=== PATIENT | female | born 1980 | race Caucasian/White ===

== ENCOUNTER 2016-05-14 13:24 | Emergency (ER) | payer SELFPAY ==
[~2016-05-14 13:24] MED LIST: CHLO25CA PO; CLON.1 PO; SULF1SOL4 OD; VIST25CA PO
[2016-05-14 13:42] VITALS: BP 125/73; PULSE 95
--- NOTE | 2016-05-14 14:09 | PD ---
HPI Chief Complaint Abnormal ultrasound findings earlier today (López Rodney MD R1) Travel History International Travel<30 Days: No Contact w/Intl Traveler<30Days: No Known Affected Area: No (López Rodney MD R1) History of Present Illness HPI 36 year old with no care at approximately 21/4 weeks gestation based on LMP presents to OB ED after being informed of abnormal ultrasound findings earlier today at [facility]. She was told there may be hydrocephalus, pleural effusions, and ascites and was recommended to seek medical care. The patient has complaints of a mild, dull, achy headache that has been occurring most days of the week since her started, as well as intermittent spots and dots in her vision, intermittent RUQ abdominal pain, and trace lower extremity edema up to mid-tibia bilaterally. She denies any history of hypertension or PIH. Denies dysuria or hematuria. She states she continues to smoke up to 1 PPD cigarettes and has been smoking 1 PPD throughout the . She does admit to illicit drug use with multiple drugs; she does deny any use of illicit drugs during this . Denies any intake of alcohol during the . She does not report any other complaints. Para: 2 : 3 (López Rodney MD R1) History Past Medical History Narrative Medical History of multiple urinary tract infections Renal calculi History of overdose with soma in 2010 Depression (López Rodney MD R1) Obstetric History Obstetric History 2 previous pregnancies resulted in term vaginal deliveries First reportedly uncomplicated Second complicated by diet-controlled diabetes (López Rodney MD R1) Past Surgical History Narrative Surgical Right stent placement due to renal calculi (López Rodney MD R1) Family History Family History: Negative (López Rodney MD R1) Social History Alcohol Use: No Tobacco Use: Yes (Up to 1 PPD throughout ) Substance Abuse: No (History of substance abuse, currently denies any use) ( López Rodney MD R1) Allergies-Medications (Allergen,Severity, Reaction): Coded Allergies: No Known Allergies (Verified , 07/19/10) Home Meds Active Scripts Sulfacetamide Sodium (Bleph-10)5 Ml Soln1 Drop OD Q1H #1 Prov:Sandor Felder Jr, MD 07/19/10 Reported Medications Clonidine 0.1 mg (Catapres 0.1 mg)0.1 Mg Tab0.1 Mg PO DIRECTED #60 07/19/10 Hydroxyzine Pamoate (Vistaril)25 Mg Cap Po As Directed UNKNOWN DOSE 07/19/10 Chlordiazepoxide Hcl (Librium)25 Mg Cap25 Mg PO QID 07/19/10 Review of Systems Except as stated in HPI: all other systems reviewed are Neg (López Rodney MD R1) Physical Exam Narrative GENERAL: Well-nourished, well-developed patient. SKIN: Warm and dry. HEAD: Normocephalic and atraumatic. EYES: No scleral icterus. No injection or drainage. ENT: No nasal drainage noted. Mucous membranes pink. Airway patent. NECK: Supple, trachea midline. No JVD. CARDIOVASCULAR: Regular rate and rhythm without murmurs, gallops, or rubs. RESPIRATORY: Breath sounds equal bilaterally. No accessory muscle use. ABDOMEN/GI: Abdomen soft, non-tender in all quadrants, bowel sounds present, no rebound, no guarding Gravid to ~21-22 weeks size FH ~2 cm above umbilicus GENITOURINARY: External Genitalia: [-] BUS glands: [-] Cervix: [-] Dilatation: [-] Effacement: [-] Station: [-] Presentation: [-] Membranes: [] Uterine Contractions: [-] FHT's: Category: [-] Baseline: [-] Reactive: [-] Variability: [-] Decels: [-] EXTREMITIES: 1+ pitting edema up to mid-tibia bilaterally. BACK: Nontender without obvious deformity. NEUROLOGICAL: Awake and alert. Motor and sensory grossly within normal limits. Normal speech. (López Rodney MD R1) Data Data Vital Signs Reviewed: Yes Orders Vital Signs (Adult) .ON ADMISSION (05/14/16 14:00) ^ Labor Status (05/14/16 14:00) ^ Heart (05/14/16 14:00) (López Rodney MD R1) [facility] Medical Record Reviewed: Yes Plan 36 year old with no care at approximately 21/4 weeks gestation based on LMP presents to OB ED after being informed of abnormal ultrasound findings earlier today at [facility]. 1. Abnormal Ultrasound Findings - Ultrasound obtained at OB diagnostics today significant for ventriculomegaly, skin edema, ascites, pleural effusion, and dilated third ventricle - Etiology is unknown at this time - The patient will need a level 2 OB ultrasound - Patient lives about between [place] and [place] and will need to obtain emergency medicaid in order to establish with an OB provider for further management and to obtain the level 2 ultrasound - Patient has been instructed to obtain insurance first and will be provided information as to how to obtain medical care at either [facility] in [place] or at [place] - Informed the patient that she will likely need an amniocentesis for further evaluation as to the etiology dw Dr. Emery (López Rodney MD R1) Diagnosis Diagnosis: Primary Impression: Abnormal ultrasound Disposition: DISCHARGE HOME Condition: Stable Attestation Discussed ultrasound findings with patient and her friend in detail. Patient was visiting her friend for the day and decided to obtain a paid ultrasound through [facility] department when abnormalities were seen. She arrived here to Labor and Delivery through the ED due to her ultrasound today. I have given her referral to OB outpatient as patient has had no care. Additionally, patient has spoken with MFM over the phone (no in-house MFM available) and offered appointment to their office in [place] next week for Level 2 ultrasound and recommended amniocentesis. Patient lives in [place] and will most likely follow up there for management and care. ( Regina Emery MD) López Rodney MD R1 May 14, 2016 14:09 Regina Emery MD May 14, 2016 19:41
[2016-05-14 16:08] LABS: BACTERIA, URINE MANY /hpf; BLOOD, URINE NEG (NEG); GLUCOSE,URINE NEG (NEG); KETONE, URINE NEG (NEG); SQUAMOUS EPITHELIAL CELL URINE <1 /hpf (0-5); URINE COLOR YELLOW (YELLW/STRAW)
[2016-05-14 16:09] LABS: AMPHETAMINE, URINE NEG (NEG); BARBITURATES, URINE NEG (NEG); COCAINE, URINE NEG (NEG)
[2016-05-14 16:12] LABS: NITRITE,URINE POS (NEG)
[2016-05-14 16:13] LABS: COMMENT (UR) CULTURE INDICATED; CULTURE IF INDICATED CULTURE INDICATED
== END 2016-05-14 16:14 | disposition home or self-care (01) ==
LOC: HOBED 13:24
DX: O28.3 Abnormal ultrasonic finding on antenatal screening of mother (principal); Z3A.21 21 weeks gestation of pregnancy; F17.210 Nicotine dependence, cigarettes, uncomplicated; B96.20 Unspecified Escherichia coli [E. coli] as the cause of diseases classified elsewhere
CPT/HCPCS: 76805; 80307; 81001; 87077; 87086; 87186